=== PATIENT | male | born 1980 | race African-American/Black ===

== ENCOUNTER 2021-02-17 22:43 | Inpatient (IN) | payer MEDICAID ==
[~2021-02-17] VITALS: Ht 188 cm; Wt 115.2 kg
--- NOTE | 2021-02-17 22:50 | NUR ---
PT BIBSELF C/O ABD PAIN AND LOWER BACK PAIN X 2 DAYS. PT AAOX4 BREATHING EVENLY AND UNLABORED. PER PT, PT FEELS "FULL, BUT NOT EATING MORE THAN USUAL". PT ATTACHED TO MONITOR AND POX. MD AT BEDSIDE. PT GIVEN BLANKET AND CALL LIGHT WITHIN REACH
--- NOTE | 2021-02-17 23:20 | NUR ---
BLOOD COLLECTED AND SENT TO LAB
[2021-02-17 23:28] LABS: BASOPHILS # (AUTO) 0.1 K/uL (0.0-0.2); BASOPHILS % (AUTO) 1.1 % (0.0-2.0); EOSINOPHILS % (AUTO) 2.1 % (0.0-6.0); HEMATOCRIT 43 % (39-51); HEMOGLOBIN 14.2 g/dL (13.5-17.5); LYMPHOCYTES # (AUTO) 2.3 K/uL (0.8-4.8); LYMPHOCYTES % (AUTO) 27.4 % (20.0-44.0); MEAN CORPUSCULAR HGB CONC 33 g/dl (31.0-36.0); MEAN CORPUSCULAR VOLUME 82 fL (80-96); MONOCYTES # (AUTO) 0.8 K/uL (0.1-1.30); MONOCYTES % (AUTO) 9.7 % (2.0-12.0); NEUTROPHILS # (AUTO) 5.1 K/uL (1.8-8.9); NEUTROPHILS % (AUTO) 59.7 % (43.0-81.0); PLATELET COUNT (AUTO) 254 K/uL (150-450); RED BLOOD CELL COUNT(AUTO) 5.26 MIL/uL (4.5-6.0); WHITE BLOOD COUNT (AUTO) 8.5 K/uL (4.3-11.0)
[2021-02-17] MEDS ORDERED: IV NS 0.9% 1,000 ML BAG IV ONE (23:30)
--- NOTE | 2021-02-17 23:32 | NUR ---
LEFT FOR CT
--- NOTE | 2021-02-17 23:32 | NUR ---
PT TAKEN TO RADIOLOGY VIA [facility]
[2021-02-17 23:41] LABS: BILIRUBIN,URINE NEGATIVE (NEGATIVE); COLOR,URINE YELLOW (YELLOW); LEUKOCYTE ESTERASE ,URINE NEGATIVE (NEGATIVE); NITRITE, URINE NEGATIVE (NEGATIVE); PROTEIN,URINE >=300 mg/dl (NEGATIVE); UGLUCOSE 100 MG/DL mg/dL (NEGATIVE); UROBILINOGEN,URINE 0.2 EU/dL (0.2)
[2021-02-17 23:45] LABS: BACTERIA,URINE Few /HPF (None Seen); SQUAMOUS EPITHELIAL CELL,UR Few /HPF (None Seen); WBC,URINE 0-2 /HPF (0-3)
[2021-02-17 23:46] LABS: MUCUS,URINE Few /LPF (None Seen)
[2021-02-17] MEDS ORDERED: KETOROLAC TROMETHAMINE INJ 30 MG/ML VIAL ONE (23:54)
[2021-02-18] MEDS ORDERED: KETOROLAC TROMETHAMINE INJ 30 MG/ML VIAL IV ONE
[2021-02-18 00:02] LABS: ALBUMIN 3.3 g/dL (3.4-5.0); BILIRUBIN,DIRECT 0.2 mg/dL (0.0-0.2); BILIRUBIN,TOTAL 0.8 mg/dL (0.2-1.0); CREATININE 1.3 mg/dL (0.6-1.3); POTASSIUM 4.1 mmol/L (3.5-5.1)
--- NOTE | 2021-02-18 00:20 | NUR ---
COVID SWAB SENT TO LAB
--- NOTE | 2021-02-18 00:35 | NUR ---
MOVE SHEET AND CLINICALS SUBMITTED
--- NOTE | 2021-02-18 01:00 | NUR ---
US TECH AT BED SIDE
--- NOTE | 2021-02-18 01:04 | NUR ---
ENRIKE BLANCO FROM [facility] WAS NOTIFIED THAT PT IS GOING TO BE ADMITTED,.
[2021-02-18] MEDS ORDERED: ONDANSETRON HCL/PF 4 MG/2 ML VIAL IVP PRN (02:30)
[2021-02-18] MEDS ORDERED: ZOLPIDEM TARTRATE 5 MG TABLET PO PRN (02:30)
[2021-02-18] MEDS ORDERED: Z GUARD REMEDY 2 OZ OINT TP PRN (02:30)
[2021-02-18] MEDS ORDERED: MAG HYDROX/AL HYDROX/SIMETH 30 ML UDC PO PRN (02:30)
[2021-02-18] MEDS ORDERED: MAGNESIUM HYDROXIDE 30 ML UDC PO PRN (02:30)
[2021-02-18] MEDS ORDERED: ACETAMINOPHEN 325 MG TABLET PO PRN (02:30)
--- NOTE | 2021-02-18 02:49 | NUR ---
MS BED 104
--- NOTE | 2021-02-18 02:55 | NUR ---
GAVE REPORT TO RONALD CHAPPELL FOR [facility]
--- NOTE | 2021-02-18 03:20 | NUR ---
0320 Admitted from ER 40 year old male via gureagle with diagnosis of pancreatitis. Awake alert and oriented x 4. Able to ambulate from gurney to bed without assist. Received with IV fluids infusing to left AC IV site. No signs of infiltration noted. Admission assessment and care done. No skin breakdown noted when checked. No complain of SOB when asked. Denied pain when asked. Placed of isolation pending covid pcr result. NPO as ordered and explained to him that he cannot eat or drink at this time. Needs attended. Call light placed within reach and instructed to call for assistance.
--- NOTE | 2021-02-18 03:22 | NUR ---
PT IS GOING TO UNIT ON GURNEY WITH EMT AT BEDSIDE. PT IS IN STABLE CONDITION FOR TRANSPORT.
[2021-02-18] MEDS: IV NS 0.9% 1,000 ML IV SCH ×3 (03:40→22:33)
[2021-02-18 04:01] VITALS: BP 135/96
[2021-02-18 06:53] LABS: BASOPHILS % (AUTO) 0.6 % (0.0-2.0); EOSINOPHILS % (AUTO) 2.8 % (0.0-6.0); HEMATOCRIT 38 % (39-51); HEMOGLOBIN 12.7 g/dL (13.5-17.5); LYMPHOCYTES # (AUTO) 2.3 K/uL (0.8-4.8); LYMPHOCYTES % (AUTO) 35.3 % (20.0-44.0); MEAN CORPUSCULAR HGB CONC 33 g/dl (31.0-36.0); MEAN CORPUSCULAR VOLUME 82 fL (80-96); MONOCYTES # (AUTO) 0.7 K/uL (0.1-1.30); MONOCYTES % (AUTO) 10.2 % (2.0-12.0); NEUTROPHILS # (AUTO) 3.3 K/uL (1.8-8.9); NEUTROPHILS % (AUTO) 51.1 % (43.0-81.0); PLATELET COUNT (AUTO) 236 K/uL (150-450); WHITE BLOOD COUNT (AUTO) 6.5 K/uL (4.3-11.0)
[2021-02-18 06:57] LABS: PHOSPHORUS 4.3 mg/dL (2.5-4.9); POTASSIUM 4.2 mmol/L (3.5-5.1)
[2021-02-18 07:11] LABS: CALCIUM, SERUM 8.5 mg/dL (8.5-10.1); CREATININE 1.4 mg/dL (0.6-1.3); MAGNESIUM 1.7 mg/dL (1.8-2.4)
[2021-02-18] MEDS ORDERED: ENAL10TA39 PO (07:42)
[2021-02-18] MEDS ORDERED: METF-440 PO (07:42)
--- NOTE | 2021-02-18 07:48 | NUR ---
MS RN OPENING NOTES RECEIVED PATIENT IN BED, ASLEEP. PATIENT ON ROOM AIR; BREATHING EVEN AND UNLABOREDL NO SOB NOTED. NO S/S OF PAIN SUCH FACIAL GRIMACING, MOANING OR GUARDING. IV ACCESS ON LAC G # 20 RUNNING NS @ 100 MLS/HR. NPO AT THIS TIME. SAFETY PRECAUTIONS IN PLACE; BED IN LOW POSITION AND LOCKED; RAILS UP x2, CALL LIGHT WITHIN REACH. WILL CONTINUE TO MONITOR PATIENT.
[2021-02-18 10:08] VITALS: BP 138/86
[2021-02-18] MEDS: Magnesium 1GM/D5W 100ML PREMIX 100 ML IV SCH ×2 (10:43→11:59)
[2021-02-18 12:01] VITALS: BP 138/86
[2021-02-18 16:02] VITALS: BP 95/55
[2021-02-18] MEDS: METFORMIN 500 MG TABLET PO SCH (17:00)
--- NOTE | 2021-02-18 18:46 | NUR ---
MS RN CLOSING NOTES PATIENT REMAINS IN BED, ASLEEP. PATIENT ON ROOM AIR; BREATHING EVEN AND UNLABORED NO SOB NOTED. NO COMPLAINS OF PAIN DURING SHIFT. IV ACCESS ON LAC G # 20 RUNNING NS @ 100 MLS/HR. NPO AT THIS TIME. ALL NEEDS ATTENDED DURING THE DAY. SAFETY PRECAUTIONS IN PLACE; BED IN LOW POSITION AND LOCKED; RAILS UP x2, CALL LIGHT WITHIN REACH. WILL ENDORSE TO ENTRY LEVEL RECRUITER NURSE FOR [facility].
--- NOTE | 2021-02-18 19:00 | NUR ---
RN NOTE RECEIVED PATIENT IN BED, AO X 4, IN NO S/SX OF ACUTE DISTRESS AT THIS TIME, RESPIRATIONS EVEN AND UNLABORED, SATURATION AT 97% ON ROOM AIR, HR IS 62. NOTED IV SITE AT LAC 20GPATENT AND FLUSHING WELL, NO S/S OF INFECTION OR INFILTRATION WITH IV FLUID OF NS INFUSING AT 100 ML/HR. SAFETY MEASURES IMPLEMENTED. HEAD OF BED ELEVATED. BED IS LOCKED, IN LOWEST POSITION AND SIDE RAILS UP X2. CALL LIGHT WITHIN REACH OF THE PATIENT. WILL CONTINUE TO MONITOR AND REASSESS FOR ANY CHANGES.
[2021-02-18 20:00] VITALS: BP 143/79
[2021-02-19 04:00] VITALS: BP 106/79
[2021-02-19 06:29] LABS: EOSINOPHILS % (AUTO) 3.9 % (0.0-6.0); HEMATOCRIT 40 % (39-51); HEMOGLOBIN 13.1 g/dL (13.5-17.5); LYMPHOCYTES # (AUTO) 2.3 K/uL (0.8-4.8); LYMPHOCYTES % (AUTO) 46.4 % (20.0-44.0); MEAN CORPUSCULAR HGB CONC 33 g/dl (31.0-36.0); MEAN CORPUSCULAR VOLUME 82 fL (80-96); MONOCYTES # (AUTO) 0.5 K/uL (0.1-1.30); MONOCYTES % (AUTO) 10.3 % (2.0-12.0); NEUTROPHILS # (AUTO) 1.9 K/uL (1.8-8.9); NEUTROPHILS % (AUTO) 38.4 % (43.0-81.0); PLATELET COUNT (AUTO) 251 K/uL (150-450); RED BLOOD CELL COUNT(AUTO) 4.91 MIL/uL (4.5-6.0); WHITE BLOOD COUNT (AUTO) 4.9 K/uL (4.3-11.0)
[2021-02-19 07:02] LABS: CALCIUM, SERUM 8.3 mg/dL (8.5-10.1); CREATININE 1.3 mg/dL (0.6-1.3); PHOSPHORUS 3.1 mg/dL (2.5-4.9); POTASSIUM 4.7 mmol/L (3.5-5.1)
--- NOTE | 2021-02-19 07:48 | NUR ---
MS/RN OPENING NOTES RECEIVED PATIENT ON BED IS SLEEPING EASILY AWAKEN BY NAME AND LIGHT TOUCH. PATIENT IS ON ROOM AIR. PATIENT IN NO APPARENT RESPIRATORY DISTRESS NOTED. NO SIGN AND SYMPTOM OF PAIN NOTED AT THIS TIME. WILL CONTINUE TO MONITOR.
[2021-02-19 08:00] VITALS: BP 136/88
[2021-02-19] MEDS ORDERED: ENALAPRIL MALEATE (10 MG) 10 MG TABLET PO SCH (09:00)
[2021-02-19 09:06] VITALS: BP 136/88
[2021-02-19] MEDS: METFORMIN 500 MG TABLET PO SCH (09:06)
[2021-02-19] MEDS: IV NS 0.9% 1,000 ML IV SCH (09:14)
[2021-02-19] MEDS ORDERED: METF-442 PO (11:41)
--- NOTE | 2021-02-19 13:30 | NUR ---
RN NOTES PATIENT IS ALERT AND ORIENTED X4. PATIENT IS ON ROOM AIR. PATIENT IN NO APPARENT RESPIRATORY DISTRESS NOTED. SEEN AND EXAMINED BY MD WITH ORDERS MADE AND CARRIED OUT. ALL DUE MEDICATIONS WAS GIVEN. DISCHARGED INSTRUCTIONS WAS GIVEN AND PATIENT VERBALIZED UNDERSTANDING. PATIENT LEFT THE HOSPITAL IN MEDICALLY STABLE CONDITION, DINING ROOM SUPERVISOR BY FAMILY VIA PRIVATE CAR.
== END 2021-02-19 13:31 | disposition home or self-care (01) | DRG 282 ==
LOC: ER 22:57 → MEDSG1 02-18 03:06
PROVIDERS: ADMIT Registered Nurse; ATTEND Registered Nurse
DX: K85.90 Acute pancreatitis without necrosis or infection, unspecified (principal); E11.65 Type 2 diabetes mellitus with hyperglycemia; R19.7 Diarrhea, unspecified; Z20.822 Contact with and (suspected) exposure to COVID-19; I10 Essential (primary) hypertension; Z68.33 Body mass index [BMI] 33.0-33.9, adult; E66.9 Obesity, unspecified; Z72.0 Tobacco use
CPT/HCPCS: 36415; 76705-TC; 80048-TC; 80061-TC; 80076-TC; 81001; 83690-TC; 83735-TC; 84100-TC; 85025-TC; 85730-TC; 87081-TC; A6253; C9803; G0378; J1885; J3475; J7030; U0003

== ENCOUNTER → 2023-06-30 | Emergency (ER) | payer MEDICAID, OTHER ==
[~2023-06-30] VITALS: Ht 188 cm; Wt 113.4 kg
[~2023-06-30] MED LIST: ENAL10TA39 PO; oxyCODONE/APAP (5/325 MG) 1 UDTAB TABLET ONE
[2023-06-30 14:41] VITALS: TEMP 98.2
[2023-06-30] MEDS: oxyCODONE/APAP (5/325 MG) 1 UDTAB TABLET PO ONE (15:28)
[2023-06-30 15:44] LABS: BASOPHILS % (AUTO) 0.7 % (0.0-2.0); EOSINOPHILS # (AUTO) 0.2 K/uL (0.0-0.7); EOSINOPHILS % (AUTO) 2.7 % (0.0-6.0); HEMATOCRIT 38 % (39-51); HEMOGLOBIN 12.5 g/dL (13.5-17.5); LYMPHOCYTES % (AUTO) 30.3 % (20.0-44.0); MEAN CORPUSCULAR HEMOGLOBIN 26 PG (26.0-33.0); MEAN CORPUSCULAR HGB CONC 33 g/dl (31.0-36.0); MEAN CORPUSCULAR VOLUME 78 fL (80-96); MONOCYTES # (AUTO) 0.6 K/uL (0.1-1.30); MONOCYTES % (AUTO) 8.9 % (2.0-12.0); NEUTROPHILS # (AUTO) 3.8 K/uL (1.8-8.9); NEUTROPHILS % (AUTO) 57.4 % (43.0-81.0); PLATELET COUNT (AUTO) 378 K/uL (150-450); RED BLOOD CELL COUNT(AUTO) 4.86 MIL/uL (4.5-6.0); RED CELL DISTRIBUTION WIDTH 14.5 % (11.5-15.0); WHITE BLOOD COUNT (AUTO) 6.6 K/uL (4.3-11.0)
[2023-06-30 16:01] LABS: INR 1.04 (0.91-1.10)
[2023-06-30 16:06] LABS: CALCIUM, SERUM 8.6 mg/dL (8.5-10.1); CREATININE 1.2 mg/dL (0.6-1.3); POTASSIUM 4.7 mmol/L (3.5-5.1)
[2023-06-30 17:05] VITALS: O2SAT 97
[2023-06-30 18:12] VITALS: BP 132/62
== END | disposition left against medical advice (07) ==
LOC: ER 14:20
DX: M79.601 Pain in right arm (principal); F17.200 Nicotine dependence, unspecified, uncomplicated; Z79.899 Other long term (current) drug therapy; Z60.2 Problems related to living alone
CPT/HCPCS: 36415; 73200-TC; 80048-TC; 85025-TC; 85730-TC; 93971-TC